=== PATIENT | male | born 1945 | race Caucasian/White ===

== ENCOUNTER 2023-03-13 12:36 | Observation (INO) | payer MEDICARE ==
[~2023-03-13] VITALS: Ht 172.7 cm; Wt 82.7 kg
[2023-03-13] MEDS ORDERED: pantoprazole 40MG/NS 100ML BAG 100 ML IV ONE ×2 (13:00→14:00)
[2023-03-13] MEDS ORDERED: pantoprazole 40mg IV 80 MG in normal saline 100ml IV soln 100 ML IV ONE (13:00)
[2023-03-13 13:27] LABS: BASOPHILS % (AUTO) 0.4 % (0-1); EOSINOPHILS % (AUTO) 0.2 % (0-6); HEMOGLOBIN 8.3 g/dl (14.0-17.9); LYMPHOCYTES % (AUTO) 12.1 % (21-51); MEAN CORPUSCULAR HEMOGLOBIN 25.1 PG (27.0-31.0); MEAN CORPUSCULAR HGB CONC 32.1 g/dL (33.0-36.5); MEAN CORPUSCULAR VOLUME 78.3 FL (78-98); MEAN PLATELET VOLUME 8.6 FL (7.4-10.4); MONOCYTES # (AUTO) 2.8 X10'3 (0-0.9); MONOCYTES % (AUTO) 32.9 % (2-12); NEUTROPHILS # (AUTO) 4.6 X10'3 (1.8-7.7); NEUTROPHILS % (AUTO) 54.4 % (42-75); PLATELET COUNT 57 X10'3 (140-440); RED BLOOD COUNT 3.32 X10'6 (4.70-6.10); RED CELL DISTRIBUTION WIDTH 16.8 % (11.5-14.5); WHITE BLOOD COUNT 8.4 X10'3 (4.5-11.0)
[2023-03-13 13:41] LABS: APTT 26 SECONDS (22-32)
[2023-03-13 13:43] LABS: ALANINE AMINOTRANSFERASE 14 U/L (12-78); ALBUMIN 3.6 G/DL (3.4-5.0); ALBUMIN/GLOBULIN RATIO 1.1 (1.1-1.5); ALKALINE PHOSPHATASE 72 IU/L (46-116); ANION GAP 10 (8-16); ASPARTATE AMINO TRANSFERASE 13 U/L (10-37); BILIRUBIN,TOTAL 0.4 MG/DL (0.1-1.0); BLOOD UREA NITROGEN 15 MG/DL (7-18); BUN/CREATININE RATIO 15.3 (10.0-20.0); CALCIUM 8.8 MG/DL (8.5-10.1); CHLORIDE 107 MMOL/L (99-107); CREATININE 0.98 MG/DL (0.60-1.10); GLUCOSE 129 MG/DL (70-104); POTASSIUM 3.9 MMOL/L (3.5-5.1); SODIUM 140 MMOL/L (135-145); TOTAL CARBON DIOXIDE 23.3 MMOL/L (24-32); TOTAL PROTEIN 6.8 G/DL (6.4-8.2); eGFR 74 ML/MIN
[2023-03-13 14:00] LABS: CLARITY,URINE SLIGHTLY CLOUDY (Clear); COLOR,URINE YELLOW (Yellow); GLUCOSE, URINE NEGATIVE (Neg); KETONES,URINE NEGATIVE (Neg); LEUKOCYTE ESTERASE ,URINE NEGATIVE (Neg); NITRITES, URINE NEGATIVE (Neg); OCCULT BLOOD,URINE TRACE-INTACT (Neg); PH,URINE 7.5 (4.8-8.0); PROTEIN,URINE NEGATIVE (Neg); UROBILINOGEN,URINE 0.2 E.U/dL (0.2-1.0)
[2023-03-13 14:00] LABS: BANDS% (MANUAL) 1.5 % (0-10); METAMYLEOCYTES% (MANUAL) 0.5 % (0-0); MONOCYTES % (MANUAL) 26.5 % (2-12); NEUTROPHILS % (MANUAL) 58.5 % (42-75); NUCLEATED RED BLOOD CELLS 1 /100WBC (0-0); TOTAL CELLS COUNTED 200
[2023-03-13 14:01] LABS: ANISOCYTOSIS 1+; HYPOCHROMASIA 1+; MICROCYTOSIS 1+; PLATELET ESTIMATE DECREASED
[2023-03-13 14:05] LABS: UA COLLECTION TYPE CLN CATCH MIDSTREAM
[2023-03-13 14:10] LABS: SQUAMOUS EPITHELIAL CELL,UR FEW /LPF (FEW)
[2023-03-13 14:13] LABS: BACTERIA,URINE 1+ /HPF (Neg); WBC,URINE 0-4 /HPF (0-4)
[2023-03-13] MEDS ORDERED: AMLO2.5T2 PO (15:21)
[2023-03-13] MEDS ORDERED: acetaminophen 650mg rectal suppository RC PRN (17:35)
[2023-03-13] MEDS ORDERED: magnesium 4gm in 100ml NS 100 ML IV PRN (17:35)
[2023-03-13] MEDS ORDERED: acetaminophen 325mg tablet PO PRN ×2 (17:35)
[2023-03-13] MEDS: normal saline 1000ml 1,000 ML IV SCH ×2 (17:35→20:26)
[2023-03-13] MEDS ORDERED: potassium Cl 20 mEq SR tablet PO PRN ×2 (17:35)
[2023-03-13] MEDS ORDERED: bisacodyl 10mg suppository rectal RC PRN (17:35)
[2023-03-13] MEDS ORDERED: ondansetron/PF 4mg/2ml inj IV PRN (17:35)
[2023-03-13] MEDS ORDERED: mag hydrox/Alum hydrox/simeth 30ml oral suspension PO PRN (17:35)
[2023-03-13] MEDS ORDERED: magnesium 2GM in 50ml NS 50 ML IV PRN (17:35)
[2023-03-13] MEDS ORDERED: magnesium Cl slow-release 64mg tablet PO PRN (17:35)
[2023-03-13] MEDS ORDERED: PEG 3350/Na sulf,bicarb,Cl/KCl oral sol 4 liter bottle PO ONE (17:35)
[2023-03-13] MEDS ORDERED: potassium Cl 40MEQ/1/2NS 520ml 520 ML IV PRN (17:35)
[2023-03-13] MEDS ORDERED: magnesium hydroxide 30ml (MOM) UD suspension PO PRN (17:35)
[2023-03-13] MEDS ORDERED: ondansetron 4mg rapidly disintigrating tab PO PRN (17:35)
[2023-03-13] MEDS ORDERED: LORazepam 2 mg/ml vial IV ONE (19:05)
[2023-03-13] MEDS: docusate sod 100mg capsule PO SCH (20:00)
[2023-03-13] MEDS: K and/or MAG REPLACEMENT MC SCH (20:16)
[2023-03-13] MEDS ORDERED: amLODIPine 2.5mg tablet PO SCH (21:00)
[2023-03-13] MEDS ORDERED: temazepam 15mg capsule PO PRN (21:00)
--- NOTE | 2023-03-14 00:15 | NUR ---
Patient in room ORTHO 4023. I have received report from LINETTE Nelson and had the opportunity to ask questions and assume patient care.
--- NOTE | 2023-03-14 00:25 | NUR ---
pt arrived via gurney. oriented to the room and settled into bed. call light in reach.
[2023-03-14 01:15] VITALS: BP 148/73
[2023-03-14] MEDS: normal saline 1000ml 1,000 ML IV SCH (01:35)
[2023-03-14 06:02] LABS: HEMATOCRIT 25.1 % (42.0-52.0); HEMOGLOBIN 8.2 g/dl (14.0-17.9); MEAN CORPUSCULAR HEMOGLOBIN 25.1 PG (27.0-31.0); MEAN CORPUSCULAR HGB CONC 32.5 g/dL (33.0-36.5); MEAN CORPUSCULAR VOLUME 77.1 FL (78-98); MEAN PLATELET VOLUME 8.7 FL (7.4-10.4); RED BLOOD COUNT 3.26 X10'6 (4.70-6.10); RED CELL DISTRIBUTION WIDTH 16.7 % (11.5-14.5); WHITE BLOOD COUNT 6.3 X10'3 (4.5-11.0)
[2023-03-14 06:15] LABS: ALBUMIN 3.4 G/DL (3.4-5.0); ANION GAP 5 (8-16); BLOOD UREA NITROGEN 12 MG/DL (7-18); BUN/CREATININE RATIO 12.8 (10.0-20.0); CALCIUM 8.7 MG/DL (8.5-10.1); CHLORIDE 108 MMOL/L (99-107); CREATININE 0.94 MG/DL (0.60-1.10); GLUCOSE 102 MG/DL (70-104); POTASSIUM 3.6 MMOL/L (3.5-5.1); SODIUM 140 MMOL/L (135-145); TOTAL CARBON DIOXIDE 27.3 MMOL/L (24-32); eGFR 77 ML/MIN
[2023-03-14 06:42] LABS: PLATELET COUNT 46 X10'3 (140-440)
--- NOTE | 2023-03-14 06:51 | NUR ---
Problems reprioritized. Patient report given, questions answered & plan of care reviewed with LINETTE Varma.
[2023-03-14 07:00] VITALS: BP 159/89
--- NOTE | 2023-03-14 07:55 | NUR ---
PAGER ID: [phone] MESSAGE: [phone] [facility]IS[facility] CRITICAL VALUE OF PLATELETS [address] [place] [address] [phone]
[2023-03-14] MEDS: K and/or MAG REPLACEMENT MC SCH (08:00)
[2023-03-14] MEDS: docusate sod 100mg capsule PO SCH (08:00)
[2023-03-14] MEDS ORDERED: MIDAZolam 1 MG/ML 5ML VIAL ONE (09:54)
[2023-03-14] MEDS ORDERED: fentaNYL/PF 50MCG/1 ML 2ML syringe ONE (09:54)
[2023-03-14] MEDS ORDERED: LIDOcaine Viscous 15ml cup ONE (09:54)
[2023-03-14 10:00] VITALS: BP 134/75
--- NOTE | 2023-03-14 13:26 | NUR ---
Patient wheeled out by tech, IVs taken out of bilateral ACs canula intact. Ride here from [place]
== END 2023-03-14 13:25 | disposition home or self-care (01) ==
LOC: ER 12:37 → ED HOLD 17:39 → ORTHO 4S 03-14 00:30
PROVIDERS: ADMIT Family Medicine; ATTEND Family Medicine
DX: K92.2 Gastrointestinal hemorrhage, unspecified (principal); D50.9 Iron deficiency anemia, unspecified; D69.6 Thrombocytopenia, unspecified; I10 Essential (primary) hypertension; Z87.891 Personal history of nicotine dependence; Z79.899 Other long term (current) drug therapy
CPT/HCPCS: 36415; 71045; 80048; 80053; 81001; 83735; 85007; 85025; 85027; 85610; 85730; 86885; 86900; 86901; 87081; 93005; 96361; 96365; 96366; 96375; 96376; 99285; C9113; G0378; J2060; J3490; J7030; J2250; J3010

== ENCOUNTER 2023-08-22 10:20 | Inpatient (IN) | payer MEDICARE ==
[~2023-08-22] VITALS: Ht 172.7 cm; Wt 84.0 kg
[~2023-08-22 10:20] MED LIST: BENA20TA83 PO; LACT1CAP55 PO; LINE600T12 PO
[2023-08-22] MEDS ORDERED: normal saline 1000ml 1,000 ML IV ONE (12:30)
[2023-08-22] MEDS ORDERED: vancomycin/NS 1 GM ADD-VANTAGE 250 ML IV ONE (12:30)
[2023-08-22] MEDS: diatr meglu/diatrizoate 30ml oral sol.-(3 dose) bottle PO SCH ×3 (12:53→17:01)
[2023-08-22 13:18] LABS: BASOPHILS % (AUTO) 0.3 % (0-1); EOSINOPHILS % (AUTO) 0.4 % (0-6); HEMATOCRIT 35.2 % (42.0-52.0); HEMOGLOBIN 11.6 g/dl (14.0-17.9); MEAN CORPUSCULAR HEMOGLOBIN 25.3 PG (27.0-31.0); MEAN CORPUSCULAR HGB CONC 32.9 g/dL (33.0-36.5); MEAN PLATELET VOLUME 12.7 FL (7.4-10.4); MONOCYTES # (AUTO) 3.4 X10'3 (0-0.9); MONOCYTES % (AUTO) 53.1 % (2-12); NEUTROPHILS # (AUTO) 1.9 X10'3 (1.8-7.7); NEUTROPHILS % (AUTO) 30.2 % (42-75); RED BLOOD COUNT 4.58 X10'6 (4.70-6.10); RED CELL DISTRIBUTION WIDTH 19.6 % (11.5-14.5); WHITE BLOOD COUNT 6.4 X10'3 (4.5-11.0)
[2023-08-22 13:32] LABS: APTT 34 SECONDS (22-32); INR 1.1 INR; PROTHROMBIN TIME 11.4 SECONDS (9.0-12.0)
[2023-08-22 13:43] LABS: ALANINE AMINOTRANSFERASE 23 U/L (12-78); ALBUMIN/GLOBULIN RATIO 0.8 (1.1-1.5); ANION GAP 12 (8-16); ASPARTATE AMINO TRANSFERASE 21 U/L (10-37); BILIRUBIN,TOTAL 0.8 MG/DL (0.1-1.0); BLOOD UREA NITROGEN 20 MG/DL (7-18); BUN/CREATININE RATIO 12.5 (10.0-20.0); CALCIUM 9.6 MG/DL (8.5-10.1); CHLORIDE 102 MMOL/L (99-107); GLUCOSE 121 MG/DL (70-104); MAGNESIUM 2.3 MG/DL (1.5-2.4); POTASSIUM 3.7 MMOL/L (3.5-5.1); SODIUM 139 MMOL/L (135-145); TOTAL CARBON DIOXIDE 24.6 MMOL/L (24-32); TOTAL PROTEIN 8.8 G/DL (6.4-8.2); eCRCL 36 ML/MIN; eGFR 42 ML/MIN
[2023-08-22 13:44] LABS: ALKALINE PHOSPHATASE 86 IU/L (46-116); LIPASE 31 U/L (16-77)
[2023-08-22 13:49] LABS: PLATELET COUNT 18 X10'3 (140-440)
[2023-08-22 13:51] LABS: PLATELET ESTIMATE DECREASED
[2023-08-22 13:52] LABS: ANISOCYTOSIS 2+; BURR CELLS FEW; ELLIPTOCYTES FEW; MICROCYTOSIS 1+; SCHISTOCYTES FEW
[2023-08-22 13:58] LABS: BILIRUBIN,URINE NEGATIVE (Neg); CLARITY,URINE CLOUDY (Clear); COLOR,URINE YELLOW (Yellow); GLUCOSE, URINE NEGATIVE (Neg); KETONES,URINE NEGATIVE (Neg); LEUKOCYTE ESTERASE ,URINE NEGATIVE (Neg); NITRITES, URINE NEGATIVE (Neg); OCCULT BLOOD,URINE MODERATE (Neg); PROTEIN,URINE 100 mg/dl (Neg); UROBILINOGEN,URINE 0.2 E.U/dL (0.2-1.0)
[2023-08-22 13:59] LABS: UA COLLECTION TYPE CLN CATCH MIDSTREAM
[2023-08-22 14:12] LABS: HYALINE CASTS >30 /LPF (NEGATIVE); SQUAMOUS EPITHELIAL CELL,UR FEW /LPF (FEW)
[2023-08-22 14:13] LABS: BACTERIA,URINE FEW /HPF (Neg); WBC,URINE 0-4 /HPF (0-4)
[2023-08-22] MEDS ORDERED: iohexol 300mg/ml 100ml inj. ONE ×2 (14:37→16:41)
[2023-08-22] MEDS ORDERED: ondansetron/PF 4mg/2ml inj IV PRN (15:20)
[2023-08-22] MEDS ORDERED: magnesium Cl slow-release 64mg tablet PO PRN (15:20)
[2023-08-22] MEDS ORDERED: morphine 2 MG/ML inj. syringe IV PRN (15:20)
[2023-08-22] MEDS ORDERED: potassium Cl 40MEQ/1/2NS 520ml 520 ML IV PRN (15:20)
[2023-08-22] MEDS ORDERED: magnesium 2GM in 50ml NS 50 ML IV PRN (15:20)
[2023-08-22] MEDS: normal saline 1000ml 1,000 ML IV SCH (15:20)
[2023-08-22] MEDS ORDERED: potassium Cl 20 mEq SR tablet PO PRN ×2 (15:20)
[2023-08-22] MEDS ORDERED: magnesium 4gm in 100ml NS 100 ML IV PRN (15:20)
[2023-08-22] MEDS: metroNIDAZOLE-Flagyl 500mg/NS 100 ML IV SCH ×2 (15:20→20:00)
[2023-08-22] MEDS ORDERED: acetaminophen 325mg tablet PO PRN ×2 (15:20)
[2023-08-22] MEDS ORDERED: HYDROcodone/acetaminophen 5mg/325mg tablet PO PRN (15:20)
--- NOTE | 2023-08-22 17:43 | NUR ---
PT PLACED IN BED 7 FROM FAST TRACK. ASSUMED PT CARE.
[2023-08-22] MEDS: ciprofloxacin lact 400MG/200ML 200 ML IV SCH ×2 (18:50→20:19)
--- NOTE | 2023-08-22 20:10 | NUR ---
1958 PEFORMED 2 NURSE CHECK, WITH ROD SALINAS; NO TRANSFUSION DROP DOWN BOX AVAILABLE
[2023-08-23] VITALS (9 sets, daily range): BP systolic 119–159; BP diastolic 57–87; PULSE 68–86; RESP 12–18; TEMP 97–98.7; O2SAT 96
[2023-08-23] MEDS: normal saline 1000ml 1,000 ML IV SCH ×2 (02:49→09:09)
[2023-08-23] MEDS: ciprofloxacin lact 400MG/200ML 200 ML IV SCH ×2 (02:49→19:02)
--- NOTE | 2023-08-23 07:06 | NUR ---
recd report from ER
[2023-08-23] MEDS: metroNIDAZOLE-Flagyl 500mg/NS 100 ML IV SCH ×2 (09:08→20:38)
[2023-08-23 09:53] LABS: BASOPHILS % (AUTO) 0.3 % (0-1); HEMATOCRIT 27.4 % (42.0-52.0); LYMPHOCYTES # (AUTO) 0.5 X10'3 (1.1-4.8); MEAN PLATELET VOLUME 8.4 FL (7.4-10.4); WHITE BLOOD COUNT 2.8 X10'3 (4.5-11.0)
[2023-08-23 09:55] LABS: EOSINOPHILS % (AUTO) 1.1 % (0-6); HEMOGLOBIN 9.1 g/dl (14.0-17.9); LYMPHOCYTES % (AUTO) 19.5 % (21-51); MEAN CORPUSCULAR HEMOGLOBIN 25.3 PG (27.0-31.0); MEAN CORPUSCULAR HGB CONC 33.2 g/dL (33.0-36.5); MEAN CORPUSCULAR VOLUME 76.4 FL (78-98); MONOCYTES # (AUTO) 1.2 X10'3 (0-0.9); MONOCYTES % (AUTO) 44.6 % (2-12); NEUTROPHILS % (AUTO) 34.5 % (42-75); RED BLOOD COUNT 3.59 X10'6 (4.70-6.10); RED CELL DISTRIBUTION WIDTH 19.5 % (11.5-14.5)
[2023-08-23 10:02] LABS: PLATELET COUNT 31 X10'3 (140-440)
--- NOTE | 2023-08-23 10:24 | NUR ---
Called Dr. Monroe to report critical lab value. Dr. monroe said he is rounding up on the floor soon.
[2023-08-23 10:26] LABS: ALANINE AMINOTRANSFERASE 22 U/L (12-78); ALBUMIN 3.2 G/DL (3.4-5.0); ALBUMIN/GLOBULIN RATIO 0.9 (1.1-1.5); ALKALINE PHOSPHATASE 66 IU/L (46-116); ANION GAP 7 (8-16); ASPARTATE AMINO TRANSFERASE 19 U/L (10-37); BILIRUBIN,TOTAL 0.5 MG/DL (0.1-1.0); BLOOD UREA NITROGEN 18 MG/DL (7-18); BUN/CREATININE RATIO 12.9 (10.0-20.0); CALCIUM 8.6 MG/DL (8.5-10.1); CHLORIDE 105 MMOL/L (99-107); CREATININE 1.39 MG/DL (0.60-1.10); FERRITIN 285 NG/ML (26-388); GLUCOSE 124 MG/DL (70-104); POTASSIUM 3.6 MMOL/L (3.5-5.1); SODIUM 139 MMOL/L (135-145); TOTAL CARBON DIOXIDE 26.7 MMOL/L (24-32); TOTAL PROTEIN 6.9 G/DL (6.4-8.2); eCRCL 42 ML/MIN; eGFR 49 ML/MIN
[2023-08-23 10:28] LABS: % IRON SATURATION 24 % (11-46); IRON 41 UG/DL (53-167); TOTAL IRON BINDING CAPACITY 170 UG/DL (259-388)
[2023-08-23 10:44] LABS: ANISOCYTOSIS 2+; MICROCYTOSIS 1+; PLATELET ESTIMATE DECREASED; TOTAL CELLS COUNTED 100
[2023-08-23 10:45] LABS: HYPOCHROMASIA 1+
--- NOTE | 2023-08-23 14:02 | NUR ---
Patient refused MRSA nasal swab.
--- NOTE | 2023-08-23 18:01 | NUR ---
Problems reprioritized. Patient report given, questions answered & plan of care reviewed with LINETTE Seo.
--- NOTE | 2023-08-23 18:14 | NUR ---
Problems reprioritized. Patient report given, questions answered & plan of care reviewed with carol moya.
[2023-08-23] MEDS: ferrous sulfate 325mg tablet PO SCH (20:38)
[2023-08-24] VITALS (14 sets, daily range): BP systolic 114–165; BP diastolic 57–82; PULSE 61–80; RESP 12–20; TEMP 97.5–98.1; O2SAT 93–100
--- NOTE | 2023-08-24 01:34 | NUR ---
Problems reprioritized. Patient report given, questions answered & plan of care reviewed with LINETTE Lobato.
--- NOTE | 2023-08-24 01:46 | NUR ---
Patient in room PCU 3019. I have received report from Thuan SUE and had the opportunity to ask questions and assume patient care.
[2023-08-24] MEDS: ferrous sulfate 325mg tablet PO SCH (08:00)
[2023-08-24] MEDS: metroNIDAZOLE-Flagyl 500mg/NS 100 ML IV SCH ×2 (08:07→20:40)
[2023-08-24] MEDS: ciprofloxacin lact 400MG/200ML 200 ML IV SCH ×2 (08:54→22:27)
[2023-08-24 09:34] LABS: EOSINOPHILS % (AUTO) 1.8 % (0-6); HEMOGLOBIN 9.5 g/dl (14.0-17.9); LYMPHOCYTES # (AUTO) 0.7 X10'3 (1.1-4.8); MONOCYTES # (AUTO) 1.2 X10'3 (0-0.9); NEUTROPHILS # (AUTO) 0.5 X10'3 (1.8-7.7); NEUTROPHILS % (AUTO) 21.8 % (42-75)
[2023-08-24 09:37] LABS: BASOPHILS % (AUTO) 0.3 % (0-1); HEMATOCRIT 28.8 % (42.0-52.0); LYMPHOCYTES % (AUTO) 28.5 % (21-51); MEAN CORPUSCULAR HEMOGLOBIN 25.3 PG (27.0-31.0); MEAN CORPUSCULAR HGB CONC 33.1 g/dL (33.0-36.5); MEAN CORPUSCULAR VOLUME 76.4 FL (78-98); MEAN PLATELET VOLUME 8.6 FL (7.4-10.4); MONOCYTES % (AUTO) 47.6 % (2-12); RED BLOOD COUNT 3.77 X10'6 (4.70-6.10); RED CELL DISTRIBUTION WIDTH 18.9 % (11.5-14.5); WHITE BLOOD COUNT 2.4 X10'3 (4.5-11.0)
[2023-08-24 09:42] LABS: PLATELET COUNT 48 X10'3 (140-440)
[2023-08-24 09:54] LABS: ANION GAP 9 (8-16); BLOOD UREA NITROGEN 16 MG/DL (7-18); CALCIUM 8.9 MG/DL (8.5-10.1); CHLORIDE 105 MMOL/L (99-107); CREATININE 1.23 MG/DL (0.60-1.10); GLUCOSE 104 MG/DL (70-104); POTASSIUM 3.5 MMOL/L (3.5-5.1); SODIUM 137 MMOL/L (135-145); TOTAL CARBON DIOXIDE 23.1 MMOL/L (24-32); eCRCL 47 ML/MIN; eGFR 57 ML/MIN
[2023-08-24 09:55] LABS: ALANINE AMINOTRANSFERASE 18 U/L (12-78); ALBUMIN 3.3 G/DL (3.4-5.0); ALBUMIN/GLOBULIN RATIO 0.9 (1.1-1.5); ALKALINE PHOSPHATASE 65 IU/L (46-116); ASPARTATE AMINO TRANSFERASE 18 U/L (10-37); BILIRUBIN,TOTAL 0.5 MG/DL (0.1-1.0); TOTAL PROTEIN 6.8 G/DL (6.4-8.2)
[2023-08-24 10:13] LABS: PRE OP INR 1.1 INR; PRE OP PROTIME 11.4 SECONDS (9.0-12.0)
[2023-08-24 10:18] LABS: ANISOCYTOSIS 2+; HYPOCHROMASIA 1+; MICROCYTOSIS 1+; PLATELET ESTIMATE DECREASED; TOTAL CELLS COUNTED 100
[2023-08-24 10:19] LABS: ELLIPTOCYTES FEW; SCHISTOCYTES FEW
[2023-08-24 10:20] LABS: TEAR DROP CELLS FEW
--- NOTE | 2023-08-24 12:40 | NUR ---
DR keyonna lawler of criticaal value of platelets 48, has increased to 31. states ok to go to OR. OR charge nurse aware. Addendum: 08/24/23 at 1700 by Cheryle Barraza RN has increased from 31 08/23.
[2023-08-24] MEDS: normal saline 1000ml 1,000 ML IV SCH (15:20)
[2023-08-24] MEDS ORDERED: midazolam 1 mg/ML 2ml injection ONE (15:24)
[2023-08-24] MEDS ORDERED: fentaNYL/PF 50MCG/1 ML 2ML syringe ONE (15:24)
[2023-08-24] MEDS ORDERED: succinylcholine 20mg/ml inj IV ONE (15:25)
[2023-08-24] MEDS ORDERED: LIDOcaine 2% (20mg/ml) 5ml vial ONE (15:25)
[2023-08-24] MEDS ORDERED: ondansetron/PF 4mg/2ml inj ONE (15:25)
[2023-08-24] MEDS ORDERED: propofol inj 20 ML IV ONE (15:25)
[2023-08-24] MEDS ORDERED: desflurane 240ml liquid inh. IH ONE (15:26)
[2023-08-24] MEDS ORDERED: dexamethasone sod phosphate 10mg/ml inj ONE (15:26)
[2023-08-24] MEDS ORDERED: labetalol 20mg/4ml (5mg/ml) syringe IV PRN (15:30)
[2023-08-24] MEDS ORDERED: morphine 4 MG/ML inj SYRINge IV PRN (15:30)
[2023-08-24] MEDS ORDERED: ringers solution, lacted 1,000 ML IV SCH (15:30)
[2023-08-24] MEDS ORDERED: hydrALAZINE 20mg/ml inj. IV PRN (15:30)
[2023-08-24] MEDS ORDERED: fentaNYL/PF 50MCG/1 ML 2ML syringe IV PRN ×2 (15:30)
[2023-08-24] MEDS ORDERED: morphine 2 MG/ML inj. syringe IV PRN (15:30)
[2023-08-24] MEDS ORDERED: ondansetron/PF 4mg/2ml inj IV PRN (15:30)
--- NOTE | 2023-08-24 15:54 | NUR ---
Received from OR via BED , accompanied by Anesthesiologist DR TODD and report given by Anesthesiologist. PATIENT STILL UNCONSCIOUS W/ SIMPLE MASK., NO S/S PAIN, V/S WNL, PIV 20G R FOREARM, ABDOMEN DRESSING CDI. Addendum: 08/24/23 at 1718 by Yajaira Alves RN Amended: Links added.
--- NOTE | 2023-08-24 17:04 | NUR ---
PATIENT HAS MET ALL CRITERIA FOR TRANSFER TO THE PCU FLOOR. VSS. ABD DRESSING CDI. NO C/O PAIN. PT ON TELE NUMBER 23. BED LOW, CALL LIGHT PRESENT AND 2 RAILS UP. RN PRESENT TO ACCEPT CARE OF PATIENT AND REPORT HAS BEEN CALLED. ALL QUESTIONS ANSWERED TO ACCEPTING RNOZ Addendum: 08/24/23 at 1744 by Yajaira Alves RN Amended: Links added.
--- NOTE | 2023-08-24 17:40 | NUR ---
Patient in room PCU 3019. I have received report from recovery staff joslyn SUE and had the opportunity to ask questions and assume patient care.Patient appears stable dressing to abdomen CDI. No c/o pain. commenced on post op vitals, stable. Resting at this time
--- NOTE | 2023-08-24 18:19 | NUR ---
Problems reprioritized. Patient report given, questions answered & plan of care reviewed with Eulalia SUE.
--- NOTE | 2023-08-24 18:20 | NUR ---
Patient in room PCU 3019. I have received report from LINETTE CLINTON and had the opportunity to ask questions and assume patient care.
[2023-08-25] VITALS (8 sets, daily range): BP systolic 102–146; BP diastolic 63–84; PULSE 61–92; RESP 10–20; TEMP 97.4–98.3; O2SAT 94–97
--- NOTE | 2023-08-25 06:12 | NUR ---
Problems reprioritized. Patient report given, questions answered & plan of care reviewed with LINETTE MARTINEZ.
[2023-08-25 07:44] LABS: EOSINOPHILS % (AUTO) 0.2 % (0-6); HEMOGLOBIN 9.3 g/dl (14.0-17.9); LYMPHOCYTES # (AUTO) 0.4 X10'3 (1.1-4.8); MONOCYTES # (AUTO) 0.4 X10'3 (0-0.9); NEUTROPHILS # (AUTO) 0.7 X10'3 (1.8-7.7)
[2023-08-25 07:47] LABS: BASOPHILS % (AUTO) 0.4 % (0-1); HEMATOCRIT 28.1 % (42.0-52.0); LYMPHOCYTES % (AUTO) 28.8 % (21-51); MEAN CORPUSCULAR HEMOGLOBIN 25.4 PG (27.0-31.0); MEAN CORPUSCULAR HGB CONC 33.2 g/dL (33.0-36.5); MEAN CORPUSCULAR VOLUME 76.6 FL (78-98); MONOCYTES % (AUTO) 22.9 % (2-12); NEUTROPHILS % (AUTO) 47.7 % (42-75); RED BLOOD COUNT 3.67 X10'6 (4.70-6.10); RED CELL DISTRIBUTION WIDTH 19.1 % (11.5-14.5); WHITE BLOOD COUNT 1.6 X10'3 (4.5-11.0)
[2023-08-25 07:51] LABS: PLATELET COUNT 37 X10'3 (140-440)
[2023-08-25 07:57] LABS: ALANINE AMINOTRANSFERASE 17 U/L (12-78); ALBUMIN 3.3 G/DL (3.4-5.0); ALBUMIN/GLOBULIN RATIO 0.9 (1.1-1.5); ALKALINE PHOSPHATASE 64 IU/L (46-116); ANION GAP 9 (8-16); ASPARTATE AMINO TRANSFERASE 14 U/L (10-37); BILIRUBIN,TOTAL 0.5 MG/DL (0.1-1.0); BLOOD UREA NITROGEN 17 MG/DL (7-18); BUN/CREATININE RATIO 14.3 (10.0-20.0); CALCIUM 8.7 MG/DL (8.5-10.1); CHLORIDE 106 MMOL/L (99-107); CREATININE 1.19 MG/DL (0.60-1.10); GLUCOSE 129 MG/DL (70-104); POTASSIUM 3.8 MMOL/L (3.5-5.1); SODIUM 138 MMOL/L (135-145); TOTAL CARBON DIOXIDE 22.6 MMOL/L (24-32); TOTAL PROTEIN 7.1 G/DL (6.4-8.2); eCRCL 49 ML/MIN; eGFR 59 ML/MIN
[2023-08-25 08:10] LABS: ANISOCYTOSIS 2+; MICROCYTOSIS 1+; PLATELET ESTIMATE DECREASED; TOTAL CELLS COUNTED 100
[2023-08-25 08:11] LABS: ELLIPTOCYTES FEW; SCHISTOCYTES FEW; TEAR DROP CELLS FEW
[2023-08-25] MEDS: ciprofloxacin lact 400MG/200ML 200 ML IV SCH ×2 (10:26→20:52)
[2023-08-25] MEDS: ferrous sulfate 325mg tablet PO SCH (10:26)
[2023-08-25] MEDS: metroNIDAZOLE-Flagyl 500mg/NS 100 ML IV SCH ×2 (10:26→22:26)
[2023-08-25] MEDS ORDERED: polyethylene glycol 3350 17gm powd pack PO STA (14:57)
--- NOTE | 2023-08-25 18:37 | NUR ---
Patient in room PCU 3019. I have received report from Bia SUE and had the opportunity to ask questions and assume patient care.
[2023-08-26] VITALS (8 sets, daily range): BP systolic 115–153; BP diastolic 63–74; PULSE 59–82; RESP 12–18; TEMP 97.9–98.6; O2SAT 95–98
--- NOTE | 2023-08-26 07:20 | NUR ---
Problems reprioritized. Patient report given, questions answered & plan of care reviewed with Bia SUE.
[2023-08-26 07:53] LABS: LYMPHOCYTES # (AUTO) 1.2 X10'3 (1.1-4.8); MEAN CORPUSCULAR HGB CONC 33.6 g/dL (33.0-36.5); MEAN PLATELET VOLUME 8.6 FL (7.4-10.4); NEUTROPHILS # (AUTO) 0.9 X10'3 (1.8-7.7); RED BLOOD COUNT 4.01 X10'6 (4.70-6.10)
[2023-08-26 07:56] LABS: BASOPHILS % (AUTO) 0.3 % (0-1); EOSINOPHILS % (AUTO) 1.1 % (0-6); HEMATOCRIT 30.7 % (42.0-52.0); HEMOGLOBIN 10.3 g/dl (14.0-17.9); MEAN CORPUSCULAR HEMOGLOBIN 25.7 PG (27.0-31.0); MEAN CORPUSCULAR VOLUME 76.4 FL (78-98); MONOCYTES # (AUTO) 2.1 X10'3 (0-0.9); MONOCYTES % (AUTO) 49.6 % (2-12); RED CELL DISTRIBUTION WIDTH 18.9 % (11.5-14.5); WHITE BLOOD COUNT 4.3 X10'3 (4.5-11.0)
[2023-08-26] MEDS: ciprofloxacin lact 400MG/200ML 200 ML IV SCH (07:56)
[2023-08-26 08:07] LABS: PLATELET COUNT 32 X10'3 (140-440)
[2023-08-26] MEDS: lactobacillus rhamnosus 10,000 MMU CELLS/CAPSULE PO SCH (08:13)
[2023-08-26] MEDS: ferrous sulfate 325mg tablet PO SCH (08:13)
[2023-08-26] MEDS: lisinopril 20mg tablet PO SCH (08:14)
[2023-08-26 08:18] LABS: ALANINE AMINOTRANSFERASE 19 U/L (12-78); ALBUMIN 3.5 G/DL (3.4-5.0); ALBUMIN/GLOBULIN RATIO 0.9 (1.1-1.5); ALKALINE PHOSPHATASE 62 IU/L (46-116); ANION GAP 10 (8-16); ASPARTATE AMINO TRANSFERASE 29 U/L (10-37); BILIRUBIN,TOTAL 0.4 MG/DL (0.1-1.0); BLOOD UREA NITROGEN 20 MG/DL (7-18); BUN/CREATININE RATIO 14.9 (10.0-20.0); CHLORIDE 106 MMOL/L (99-107); CREATININE 1.34 MG/DL (0.60-1.10); GLUCOSE 100 MG/DL (70-104); POTASSIUM 3.4 MMOL/L (3.5-5.1); SODIUM 139 MMOL/L (135-145); TOTAL CARBON DIOXIDE 22.9 MMOL/L (24-32); TOTAL PROTEIN 7.4 G/DL (6.4-8.2); eCRCL 43 ML/MIN; eGFR 51 ML/MIN
[2023-08-26] MEDS: metroNIDAZOLE-Flagyl 500mg/NS 100 ML IV SCH (09:11)
[2023-08-26 09:43] LABS: BURR CELLS FEW; ELLIPTOCYTES FEW; PLATELET ESTIMATE DECREASED; TEAR DROP CELLS 2+
[2023-08-26] MEDS ORDERED: bisacodyl 5mg tablet.DR PO ONE (10:45)
--- NOTE | 2023-08-26 15:22 | NUR ---
at the 0800 med pass, I educated the patient on his medications' purpose and the side effects that he may experience while on these meds
[2023-08-26] MEDS: normal saline 1000ml 1,000 ML IV SCH (15:25)
--- NOTE | 2023-08-26 16:16 | NUR ---
student medication administration was done under the direct supervision of the instructor
--- NOTE | 2023-08-26 16:16 | NUR ---
Student documentation: I have reviewed all interventions, assessments performed and documented today by the student Marquis.
[2023-08-26] MEDS ORDERED: potassium Cl 20 mEq SR tablet PO PRN (16:35)
[2023-08-26] MEDS ORDERED: potassium Cl 40MEQ/1/2NS 520ml 520 ML IV PRN (16:35)
--- NOTE | 2023-08-26 19:00 | NUR ---
Problems reprioritized. Patient report given, questions answered & plan of care reviewed with LINETTE Sam.
[2023-08-26] MEDS: K and/or MAG REPLACEMENT MC SCH (20:00)
[2023-08-26] MEDS ORDERED: polyethylene glycol 3350 17gm powd pack PO SCH (21:00)
[2023-08-26] MEDS: potassium Cl 20 mEq SR tablet PO PRN (21:16)
[2023-08-26] MEDS: ciprofloxacin 250mg tablet PO SCH (21:17)
[2023-08-26] MEDS: metroNIDAZOLE 500mg tablet PO SCH (21:17)
[2023-08-27] MEDS: potassium Cl 20 mEq SR tablet PO PRN (01:39)
[2023-08-27 02:00] VITALS: BP 107/48; PULSE 78; RESP 16; TEMP 98.2; O2SAT 94
[2023-08-27 06:00] VITALS: BP 121/61; PULSE 67; RESP 14; TEMP 98.7; O2SAT 98
[2023-08-27 06:33] LABS: ALANINE AMINOTRANSFERASE 18 U/L (12-78); ALBUMIN 3.4 G/DL (3.4-5.0); ALBUMIN/GLOBULIN RATIO 0.9 (1.1-1.5); ALKALINE PHOSPHATASE 61 IU/L (46-116); ANION GAP 9 (8-16); ASPARTATE AMINO TRANSFERASE 17 U/L (10-37); BILIRUBIN,TOTAL 0.4 MG/DL (0.1-1.0); BLOOD UREA NITROGEN 18 MG/DL (7-18); BUN/CREATININE RATIO 12.6 (10.0-20.0); CALCIUM 8.8 MG/DL (8.5-10.1); CHLORIDE 106 MMOL/L (99-107); CREATININE 1.43 MG/DL (0.60-1.10); GLUCOSE 103 MG/DL (70-104); POTASSIUM 3.9 MMOL/L (3.5-5.1); SODIUM 138 MMOL/L (135-145); TOTAL CARBON DIOXIDE 22.7 MMOL/L (24-32); TOTAL PROTEIN 7.1 G/DL (6.4-8.2); eCRCL 41 ML/MIN; eGFR 48 ML/MIN
--- NOTE | 2023-08-27 06:34 | NUR ---
Problems reprioritized. Patient report given, questions answered & plan of care reviewed with Mary
[2023-08-27 06:38] LABS: EOSINOPHILS # (AUTO) 0.1 X10'3 (0-0.9); HEMOGLOBIN 10.2 g/dl (14.0-17.9); LYMPHOCYTES # (AUTO) 1.1 X10'3 (1.1-4.8); MEAN CORPUSCULAR VOLUME 76.2 FL (78-98); MEAN PLATELET VOLUME 8.7 FL (7.4-10.4); NEUTROPHILS # (AUTO) 1.1 X10'3 (1.8-7.7); WHITE BLOOD COUNT 5.8 X10'3 (4.5-11.0)
[2023-08-27 06:41] LABS: BASOPHILS % (AUTO) 0.3 % (0-1); EOSINOPHILS % (AUTO) 1.2 % (0-6); LYMPHOCYTES % (AUTO) 18.9 % (21-51); MEAN CORPUSCULAR HEMOGLOBIN 25.2 PG (27.0-31.0); MONOCYTES # (AUTO) 3.5 X10'3 (0-0.9); MONOCYTES % (AUTO) 60.6 % (2-12); RED BLOOD COUNT 4.07 X10'6 (4.70-6.10); RED CELL DISTRIBUTION WIDTH 18.5 % (11.5-14.5)
--- NOTE | 2023-08-27 06:43 | NUR ---
Patient in room PCU 3019. I have received report from Lauri SUE and had the opportunity to ask questions and assume patient care.
[2023-08-27 06:55] LABS: PLATELET COUNT 26 X10'3 (140-440)
--- NOTE | 2023-08-27 07:36 | NUR ---
Lab called for a critical platelet of 26. I called the day shift resident Dr. Rivera and informed her of the critical value.
[2023-08-27 07:51] LABS: NUCLEATED RED BLOOD CELLS 1 /100WBC (0-0); PLATELET ESTIMATE DECREASED; TOTAL CELLS COUNTED 100
[2023-08-27 07:52] LABS: ANISOCYTOSIS 1+; HYPOCHROMASIA 1+; MICROCYTOSIS 1+
[2023-08-27 07:53] LABS: SCHISTOCYTES FEW; TEAR DROP CELLS FEW
[2023-08-27 08:00] VITALS: RESP 14; O2SAT 98
[2023-08-27] MEDS: K and/or MAG REPLACEMENT MC SCH (08:00)
[2023-08-27] MEDS: ferrous sulfate 325mg tablet PO SCH (08:50)
[2023-08-27] MEDS: lactobacillus rhamnosus 10,000 MMU CELLS/CAPSULE PO SCH (08:50)
[2023-08-27 08:51] VITALS: BP_SYST 121; PULSE 67
[2023-08-27] MEDS: lisinopril 20mg tablet PO SCH (08:51)
[2023-08-27] MEDS: metroNIDAZOLE 500mg tablet PO SCH (08:51)
[2023-08-27] MEDS ORDERED: TETR-59 PO (10:15)
[2023-08-27] MEDS: ciprofloxacin 250mg tablet PO SCH (10:22)
--- NOTE | 2023-08-27 13:24 | NUR ---
Pt stable for discharge per Dr. Calzada and Dr. Baxter. All discharge instructions reviewed with patient and all questions answered, pt verbalized understanding. Antibiotic ordered and wound care supples provided for a few days. PIV discontinued, cannula intact. Tele discontinued. All belongings collected and sent with patient. Wheeled to lobby via nursing staff and picked up by friend.
== END 2023-08-27 13:05 | disposition home or self-care (01) | DRG 856 ==
LOC: ER 10:21 → ED HOLD 15:24 → PCU 3S 08-23 07:30
PROVIDERS: ADMIT Internal Medicine; ATTEND Internal Medicine
PROC: BW211ZZ Computerized Tomography (CT Scan) of Abdomen and Pelvis using Low Osmolar Contrast (ICD-10-PCS; 2023-08-22)
PROC: 30233R1 Transfusion of Nonautologous Platelets into Peripheral Vein, Percutaneous Approach (ICD-10-PCS; 2023-08-22)
PROC: 0W9F0ZZ Drainage of Abdominal Wall, Open Approach (ICD-10-PCS; principal; 2023-08-24 15:26)
DX: T81.41XA Infection following a procedure, superficial incisional surgical site, initial encounter (principal); N17.0 Acute kidney failure with tubular necrosis; L02.211 Cutaneous abscess of abdominal wall; L03.311 Cellulitis of abdominal wall; D69.6 Thrombocytopenia, unspecified; R16.0 Hepatomegaly, not elsewhere classified; B95.61 Methicillin susceptible Staphylococcus aureus infection as the cause of diseases classified elsewhere; K80.20 Calculus of gallbladder without cholecystitis without obstruction; D50.9 Iron deficiency anemia, unspecified; I12.9 Hypertensive chronic kidney disease with stage 1 through stage 4 chronic kidney disease, or unspecified chronic kidney disease; N18.30 Chronic kidney disease, stage 3 unspecified; Z90.49 Acquired absence of other specified parts of digestive tract; Z85.038 Personal history of other malignant neoplasm of large intestine
CPT/HCPCS: 36415; 36430; 74177; 80053; 81001; 82728; 82948; 83540; 83550; 83605; 83690; 83735; 84466; 85007; 85008; 85025; 85610; 85730; 86885; 86900; 86901; 87040; 87070; 87075; 87077; 87102; 87186; 93005; 99285; A4618; A6253; A6258; A6266; A6402; A6407; A6449; A7000; G0378; J0330; J0744; J1100; J2250; J2405; J2704; J3010; J3370; J3490; J7030; J7040; J7120; P9035; Q9963; Q9967